=== PATIENT | male | born 1995 | race African-American/Black ===

== ENCOUNTER 2020-08-23 02:06 | Emergency (ER) | payer MEDICAID ==
[~2020-08-23] VITALS: Ht 172.7 cm; Wt 79.0 kg
[2020-08-23 02:47] LABS: BASOPHILS % 0.3 % (0.0-2.0); EOSINOPHILS % 0.5 % (0.0-5.0); HEMATOCRIT. 45.6 % (42.0-52.0); HEMOGLOBIN. 15.3 g/dL (14.0-18.0); LYMPHOCYTES % 15.7 % (20.0-50.0); MEAN CORPUSCULAR HEMOGLOBIN 26.8 pg (28.0-32.0); MEAN PLATELET VOLUME 8.7 fl (7.4-10.4); MONOCYTES % 4.2 % (2.0-8.0); NEUTROPHILS % 79.3 % (40.0-76.0); PLATELET 198 x1000/uL (130-400); RED BLOOD CELL COUNT 5.71 mill/uL (4.7-6.1); RED CELL DISTRIBUTION WIDTH 13.9 % (11.6-14.6)
[2020-08-23 02:53] LABS: CHLORIDE 106 mEq/L (98-107)
[2020-08-23 02:59] LABS: ETHANOL BLOOD 123 mg/dL
[2020-08-23 06:14] VITALS: BP 139/76
== END 2020-08-23 06:13 | disposition home or self-care (01) ==
LOC: ER 02:06
DX: T51.91XA Toxic effect of unspecified alcohol, accidental (unintentional), initial encounter (principal); Y92.9 Unspecified place or not applicable
CPT/HCPCS: 36415; 80053; 80320; 85025; 99283; G0480